=== PATIENT | female | born 1980 | race Two or more races ===

== ENCOUNTER 2016-08-01 03:59 | Emergency (ER) | payer SELFPAY ==
[2016-08-01 04:23] VITALS: BMI 26.2
[2016-08-01 04:27] VITALS: BP 102/60; PULSE 57; RESP 17; TEMP 98.3; O2SAT 100
[2016-08-01] MEDS ORDERED: Oxycodone/Acetaminophen 5/325 mg Tab PO STA (04:29)
--- NOTE | 2016-08-01 04:34 | ED PDOC ---
Arrival/HPI - General Chief Complaint: Trauma Time Seen by Provider: 08/01/16 04:28 Historian: Patient - History of Present Illness Narrative History of Present Illness (Text): 08/01/16 04:28 Abby Doran is a 36 year old female who presents to the emergency department complaining of a right 3rd toe injury after a wooden pallet landed on her foot at work 6.5 hours ago. Patient is ambulating and has a steady gait. Patient denies any knee or ankle injury/pain or any other complaint at this time. Time/Duration: 4-6 hours Symptom Onset: Sudden Symptom Course: Unchanged Severity Level: Mild Activities at Onset: Light Context: Work Past Medical History - Provider Review Nursing Documentation Reviewed: Yes - Infectious Disease Hx of Infectious Diseases: None - Psychiatric Hx Substance Use: No - Surgical History Other/Comment: Breast augmentation/implants - Anesthesia Hx Anesthesia: Yes Hx Anesthesia Reactions: No Hx Malignant Hyperthermia: No Family/Social History - Physician Review Nursing Documentation Reviewed: Yes Family/Social History: No Known Family HX Smoking Status: Never Smoked Hx Alcohol Use: No Hx Substance Use: No Allergies/Home Meds Allergies/Adverse Reactions: Allergies No Known Allergies Allergy (Verified 08/01/16 04:23) Home Medications: Home Meds Medication Instructions Recorded Confirmed No Known Home Med 08/01/16 08/01/16 Physical Exam - Physical Exam Narrative Physical Exam (Text): - Review of Systems Constitutional: Normal. absent: Fatigue, Weight Change, Fevers Eyes: Normal ENT: Normal Respiratory: Normal absent: SOB, Cough, Sputum Cardiovascular: Normal absent: Chest pain, Palpitations, Syncope Gastrointestinal: Normal absent: Abdominal pain, Diarrhea, Nausea, Vomiting Genitourinary: Normal. absent: Dysuria, Frequency, Hematuria Musculoskeletal: Normal. absent: Arthralgias, Back Pain, Neck Pain Skin: Right 3rd toe injury. Neurological: Normal absent: Focal Weakness Endocrine: Normal Hemo/Lymphatic: Normal Psychiatric: Normal - Physical exam Patient appears age appropriate, speaking full sentences without difficulty - Systems Exam Head: Present: Atraumatic, Normocephalic Pupils: Present: PERRL Extraocular Muscles: Present: EOMI Conjunctiva: Present: Normal Mouth: Present: Moist Mucous Membranes Neck: Present: Normal Range of Motion. No: MIDLINE TENDERNESS, Paraspinal Tenderness Respiratory/Chest: Present: Clear to Auscultation, Good Air Exchange. No: Respiratory Distress, Accessory Muscle Use, Tachypneic Cardiovascular: Present: Regular Rate and Rhythm, Normal S1, S2, Peripheral Pulses Present. No: Murmurs Abdomen: Present: Normal Bowel Sounds, No: Tenderness, Peritoneal Signs, Rebound, Guarding, Distention Back: Present: Normal Inspection. No: Midline Tenderness, Paraspinal Tenderness Upper Extremity: Present: Normal Inspection. No: Cyanosis, Edema Lower Extremity: Knee and Ankle unremarkable. 3rd Right digit not deformed but diffusely bruised. Distal neurovascular fully intact. No: Edema Neurological: Present: GCS=15, Speech Normal, cranial nerves II through XII fully intact with no cerebellar abnormality, neuro-sensory fully intact. No focal neurological deficits. Skin: Present: Warm, Dry, Normal Color. No: Rashes Lymphatic: Present: OX3, NI, NC Psychiatric: Present: Alert, Oriented x 3, Normal Insight, Normal Concentration Vital Signs Reviewed: Yes Vital Signs Temp Pulse Resp BP Pulse Ox 08/01/16 04:25 98.3 F 57 L 17 102/60 100 Temperature: Afebrile Blood Pressure: Normal Pulse: Tachycardic Respiratory Rate: Normal Medical Decision Making ED Course and Treatment: 08/01/16 04:28 Impression: 36 year old female complaining of 3rd Right toe injury after a wooden pallet fell on foot at work 6.5 hours ago. Exam shows knee and ankle are unremarkable. 3rd Right digit not deformed but diffusely bruised. Differential Diagnosis include but are not limited to: Sprain vs. Strain vs. Fracture Plan: -- Left Foot X-ray -- Percocet -- Reassess and disposition Progress Notes: 08/01/16 06:15 xray shows R. 3rd toe distal phalynx non-displaced fx. Interpreted by me. will apply usha splint pt instructed to f/u with a wallpaper remover steam in 1-2 days ambulating without difficulty flat bottom boot provided neurovasc intact Pt states she understands to return to the ER right away for new or worsening symptoms or for inability to f/u with PMD or specialist as instructed. Patient states that she fully agrees with and understands discharge instructions. States that she agrees with the plan and disposition. Verbalized and repeated discharge instructions and plan. I have given the patient opportunity to ask any additional questions. - RAD Interpretation Radiology Orders: 08/01/16 04:30 FOOT RIGHT 3 VIEWS ROUTINE [RAD] Stat - Medication Orders Current Medication Orders: Discontinued Medications Oxycodone/Acetaminophen (Percocet 5/325 Mg Tab) 1 tab PO STAT STA Stop: 08/01/16 04:30 Last Admin: 08/01/16 05:05 Dose: 1 tab - Scribe Statement The provider has reviewed the documentation as recorded by the Scribe Gwendolyn Simons Provider Scribe Attestation: All medical record entries made by the Scribe were at my direction and personally dictated by me. I have reviewed the chart and agree that the record accurately reflects my personal performance of the history, physical exam, medical decision making, and the department course for this patient. I have also personally directed, reviewed, and agree with the discharge instructions and disposition. Disposition/Present on Arrival - Present on Arrival Any Indicators Present on Arrival: No History of DVT/PE: No History of Uncontrolled Diabetes: No Urinary Catheter: No History of Decub. Ulcer: No History Surgical Site Infection Following: None - Disposition Have Diagnosis and Disposition been Completed?: Yes Diagnosis: Toe fracture Disposition: HOME/ ROUTINE Disposition Time: 06:19 Patient Plan: Discharge Condition: GOOD Discharge Instructions (ExitCare): Toe Fracture (ED) Additional Instructions: PLEASE RETURN TO THE EMERGENCY DEPARTMENT FOR NEW OR WORSENING SYMPTOMS. RETURN RIGHT AWAY IF YOU CANNOT FOLLOW UP WITH YOUR PRIMARY CARE DOCTOR, CLINIC, OR SPECIALIST IN 1-2 DAYS. PLEASE TAKE [id number] MOTRIN OR TYLENOL FOR PAIN Referrals: Lamonte Pro DPM [Staff Provider] - Follow up with primary Estrellita Restrepo DPM [Staff Provider] - Follow up with primary
--- NOTE | 2016-08-02 09:53 | RAD ---
PROCEDURE: Right Foot Radiographs. HISTORY: pain, injury COMPARISON: None. FINDINGS: BONES: Normal. No fracture. JOINTS: Normal. SOFT TISSUES: Normal. OTHER FINDINGS: None. IMPRESSION: Normal right foot radiographs.
== END 2016-08-01 06:21 | disposition home or self-care (01) ==
LOC: ED 03:59
DX: S92.501A Displaced unspecified fracture of right lesser toe(s), initial encounter for closed fracture (principal); W22.8XXA Striking against or struck by other objects, initial encounter; Y92.89 Other specified places as the place of occurrence of the external cause; Y99.0 Civilian activity done for income or pay